=== PATIENT | female | born 1980 | race African-American/Black ===

== ENCOUNTER → 2021-11-24 17:00 | Outpatient (CLI) | payer OTHER, SELFPAY ==
--- NOTE | 2021-11-24 17:04 | DI.RAD.S_ITS ---
PROCEDURE: XR SHOULDER RT MIN 2V INDICATIONS: dec ROM Rt shoulder, no past trauma, states arthritis hx TECHNIQUE: 3 views of the shoulder were acquired. COMPARISON: None. FINDINGS: Bones: No fractures or dislocations. No suspicious bony lesions. Visualized ribs appear intact. Soft tissues: No suspicious soft tissue calcifications. IMPRESSION: Normal right shoulder Dictated by: Billy Mai M.D. on 11/25/2021 at 10:43 Approved by: Billy Mai M.D. on 11/25/2021 at 10:44
== END ==
PROVIDERS: PCP Pediatrics; Referring Provider Pediatrics; Visit Provider Pediatrics
DX: M25.511 Pain in right shoulder (principal)
CPT/HCPCS: 73030